=== PATIENT | female | born 1935 ===

== ENCOUNTER 2021-09-28 10:25 | Inpatient (IN) | payer MEDICARE, OTHER ==
[2021-09-28] MEDS ORDERED: Sodium Chloride 0.9% 10 ML Syringe FLUSH PRN (11:20)
[2021-09-28] MEDS ORDERED: Albuterol 0.083% 2.5 MG/3 ML Neb Soln NEB ONE (11:27)
[2021-09-28] MEDS ORDERED: cefTRIAXone 2 GM in Sodium Chloride 0.9% 100 ML IV ONE (13:25)
[2021-09-28] MEDS ORDERED: Ondansetron 4 MG/2 ML SDV IV PRN (14:19)
[2021-09-28] MEDS ORDERED: Polyethylene Glycol 3350 Powder 17 GM Packet PO PRN (14:19)
[2021-09-28] MEDS ORDERED: Albuterol 0.083% 2.5 MG/3 ML Neb Soln NEB PRN (14:19)
[2021-09-28] MEDS ORDERED: Acetaminophen 325 MG Tab PO PRN (14:19)
[2021-09-28] MEDS ORDERED: Furosemide 40 MG/4 ML VIAL IVPUSH ONE (15:00)
[2021-09-28] MEDS ORDERED: methylPREDNISolone Sodium Succinate 125 MG/2 ML SDV IVPUSH ONE (15:00)
[2021-09-28] MEDS: Albuterol/Ipratropium 3.0-0.5 MG/3 ML Neb Soln NEB SCH ×2 (15:40→21:13)
[2021-09-28] MEDS: Enoxaparin 40 MG/0.4 ML Syringe SUBCUT SCH (15:45)
[2021-09-28] MEDS: Nicotine 14 MG/24 Hr Patch TRDERM SCH (16:00)
[2021-09-28] MEDS: Azithromycin 500 MG in Sodium Chloride 0.9% 250 ML IV SCH (16:00)
[2021-09-28] MEDS: methylPREDNISolone Sodium Succinate 40 MG/1 ML SDV IVPUSH SCH (20:14)
[2021-09-29] MEDS: Albuterol/Ipratropium 3.0-0.5 MG/3 ML Neb Soln NEB SCH (05:00)
[2021-09-29] MEDS: Furosemide 20 MG/2 ML VIAL IVPUSH SCH ×2 (05:43→13:13)
[2021-09-29] MEDS ORDERED: Furosemide 40 MG/4 ML VIAL IVPUSH ONE (06:00)
[2021-09-29] MEDS: Diltiazem IR 30 MG Tab PO SCH ×3 (07:06→18:28)
[2021-09-29] MEDS: methylPREDNISolone Sodium Succinate 40 MG/1 ML SDV IVPUSH SCH ×2 (08:07→21:06)
[2021-09-29] MEDS: Enoxaparin 40 MG/0.4 ML Syringe SUBCUT SCH (08:09)
[2021-09-29] MEDS: Nicotine 14 MG/24 Hr Patch TRDERM SCH (08:15)
[2021-09-29] MEDS ORDERED: Levalbuterol HCl 1.25 MG/3 ML Neb NEB SCH (09:00)
[2021-09-29] MEDS ORDERED: Ipratropium 0.02% 0.5 MG/2.5 ML Neb Soln NEB SCH (09:00)
[2021-09-29] MEDS: Levalbuterol HCl 1.25 MG/0.5 ML Neb NEB SCH ×3 (09:35→20:40)
[2021-09-29] MEDS: Ipratropium 0.02% 0.5 MG/2.5 ML Neb Soln NEB SCH ×3 (09:35→20:40)
[2021-09-29] MEDS: guaiFENesin 600 MG Tab.ER PO SCH ×2 (10:56→21:06)
[2021-09-29 12:12] LABS: HEMOGLOBIN A1C 6.2 %
[2021-09-29] MEDS: cefTRIAXone 2 GM in Sodium Chloride 0.9% 100 ML IV SCH (13:14)
[2021-09-29] MEDS: Azithromycin 500 MG in Sodium Chloride 0.9% 250 ML IV SCH (15:37)
[2021-09-30] MEDS: Diltiazem IR 30 MG Tab PO SCH ×4 (00:11→18:11)
[2021-09-30] MEDS: Furosemide 20 MG/2 ML VIAL IVPUSH SCH ×2 (05:51→13:51)
[2021-09-30] MEDS: Ipratropium 0.02% 0.5 MG/2.5 ML Neb Soln NEB SCH ×4 (06:12→20:44)
[2021-09-30] MEDS: Levalbuterol HCl 1.25 MG/0.5 ML Neb NEB SCH ×4 (06:12→20:44)
[2021-09-30] MEDS: Nicotine 14 MG/24 Hr Patch TRDERM SCH (08:23)
[2021-09-30] MEDS: methylPREDNISolone Sodium Succinate 40 MG/1 ML SDV IVPUSH SCH ×2 (08:24→21:05)
[2021-09-30] MEDS: guaiFENesin 600 MG Tab.ER PO SCH ×2 (08:24→21:02)
[2021-09-30] MEDS: Enoxaparin 40 MG/0.4 ML Syringe SUBCUT SCH (08:24)
[2021-09-30] MEDS: cefTRIAXone 2 GM in Sodium Chloride 0.9% 100 ML IV SCH (13:51)
[2021-09-30] MEDS: Azithromycin 500 MG in Sodium Chloride 0.9% 250 ML IV SCH (16:38)
[2021-10-01] MEDS: Diltiazem IR 30 MG Tab PO SCH ×4 (00:22→18:32)
[2021-10-01] MEDS: Ipratropium 0.02% 0.5 MG/2.5 ML Neb Soln NEB SCH ×4 (05:07→20:43)
[2021-10-01] MEDS: Levalbuterol HCl 1.25 MG/0.5 ML Neb NEB SCH ×4 (05:07→20:43)
[2021-10-01] MEDS: Furosemide 20 MG/2 ML VIAL IVPUSH SCH (05:20)
[2021-10-01] MEDS ORDERED: Magnesium Hydroxide 400 MG/5 ML Susp 30 ML Cup PO ONE (09:00)
[2021-10-01] MEDS: guaiFENesin 600 MG Tab.ER PO SCH ×2 (09:15→20:40)
[2021-10-01] MEDS: Nicotine 14 MG/24 Hr Patch TRDERM SCH (09:16)
[2021-10-01] MEDS: Enoxaparin 40 MG/0.4 ML Syringe SUBCUT SCH (09:16)
[2021-10-01] MEDS: methylPREDNISolone Sodium Succinate 40 MG/1 ML SDV IVPUSH SCH ×2 (09:16→20:40)
[2021-10-01] MEDS: Losartan 25 MG Tab PO SCH (09:29)
[2021-10-01] MEDS: cefTRIAXone 2 GM in Sodium Chloride 0.9% 100 ML IV SCH (13:32)
[2021-10-01] MEDS: Furosemide 20 MG Tab PO SCH (13:35)
[2021-10-02] MEDS: Diltiazem IR 30 MG Tab PO SCH ×3 (01:18→12:18)
[2021-10-02] MEDS: Levalbuterol HCl 1.25 MG/0.5 ML Neb NEB SCH ×2 (05:54→09:13)
[2021-10-02] MEDS: Ipratropium 0.02% 0.5 MG/2.5 ML Neb Soln NEB SCH ×2 (05:54→09:13)
[2021-10-02] MEDS: Furosemide 20 MG Tab PO SCH (06:09)
[2021-10-02] MEDS: Losartan 25 MG Tab PO SCH (08:26)
[2021-10-02] MEDS: guaiFENesin 600 MG Tab.ER PO SCH (08:26)
[2021-10-02] MEDS: Enoxaparin 40 MG/0.4 ML Syringe SUBCUT SCH (08:27)
[2021-10-02] MEDS: methylPREDNISolone Sodium Succinate 40 MG/1 ML SDV IVPUSH SCH (08:27)
[2021-10-02] MEDS: Nicotine 14 MG/24 Hr Patch TRDERM SCH (08:30)
[2021-10-02] MEDS ORDERED: Furosemide 40 MG Tab PO SCH (09:00)
== END 2021-10-02 16:28 | disposition home health service (06) | DRG 193 ==
LOC: JD.ED 10:25 → JD.MS 14:07
PROVIDERS: ADMIT Internal Medicine; ATTEND Internal Medicine
DX: J18.9 Pneumonia, unspecified organism (principal); J96.21 Acute and chronic respiratory failure with hypoxia; N30.00 Acute cystitis without hematuria; I47.1 Supraventricular tachycardia; F17.210 Nicotine dependence, cigarettes, uncomplicated; I11.0 Hypertensive heart disease with heart failure; I50.9 Heart failure, unspecified; J43.9 Emphysema, unspecified; Z66 Do not resuscitate; Z20.822 Contact with and (suspected) exposure to COVID-19; I08.3 Combined rheumatic disorders of mitral, aortic and tricuspid valves; R73.03 Prediabetes; F17.200 Nicotine dependence, unspecified, uncomplicated; R73.9 Hyperglycemia, unspecified; Z65.9 Problem related to unspecified psychosocial circumstances; Z91.19 Patient's noncompliance with other medical treatment and regimen
CPT/HCPCS: 36415; 36600; 70450; 70450-26; 71046; 71046-26; 80053; 81001; 82803; 83036; 83605; 83735; 83880; 84145; 85007; 85025; 85027; 85610; 86140; 86738; 87040; 87086; 87088; 87186; 87899; 92610-GN; 93005; 93306; 94640; 94667; 94668; 94761; 96365; 97110-GP; 97116-GP; 97163-GP; 99285; 99285-25; A9270-GY; J0456; J0696; J1650; J1940; J2920; J2930; J3490; J7050; J7620-GY; U0002